=== PATIENT | male | born 1985 | race Caucasian/White ===

== ENCOUNTER 2017-01-14 10:41 | Emergency (ER) | payer SELFPAY ==
[~2017-01-14] VITALS: Ht 182.9 cm; Wt 109.1 kg
[2017-01-14] MEDS ORDERED: BREO1INH INH (10:50)
[2017-01-14] MEDS ORDERED: PRED50TA PO (10:50)
[2017-01-14] MEDS: IPRATROPIUM 0.5MG/ALBUTEROL 2.5MG INH SOL UD 3ML (DUONEB)(J7620) NEB SCH ×3 (12:01→12:14)
[2017-01-14] MEDS ORDERED: IPRASOL4 INH (13:05)
[2017-01-14] MEDS ORDERED: MUCI600T37 PO (13:05)
[2017-01-14 13:08] VITALS: BP 139/74
--- NOTE | 2017-01-14 14:32 | REP ---
Chest x-ray: Two views. History: Cough, shortness of breath, wheezing. . Comparison study: No comparison study. . Findings: The lungs are well inflated and free of infiltrate. The pleural angles are sharp. The heart size is normal. Pulmonary vasculature is not increased. No significant bony abnormality is seen. Impression: Negative chest x-ray. Signed by Naveed Carreno MD 01/14/2017 12:47 P
== END 2017-01-14 13:39 | disposition home or self-care (01) ==
LOC: M ED 10:41
DX: J45.901 Unspecified asthma with (acute) exacerbation (principal); J20.9 Acute bronchitis, unspecified; F17.200 Nicotine dependence, unspecified, uncomplicated; Z79.899 Other long term (current) drug therapy